=== PATIENT | male | born 1960 | race Caucasian/White ===

== ENCOUNTER → 2020-04-23 | Outpatient (CLI) | payer BC ==
--- NOTE | 2020-04-24 14:20 | MRI ---
EXAM DESCRIPTION: Lumbar Spine w/o Contrast : Magnetic Resonance Imaging. CLINICAL HISTORY: LUMBAGO WITH SCIATICA RIGHT SIDE COMPARISON: None. TECHNIQUE: Multiplanar, multiple standard sequences, non contrast MRI, lumbar spine. FINDINGS: L5-S1: The disc is well visualized on axial T2 series 501, image 3. Normal signal in the disc with disc space maintained. Trace posterior midline bulge and grade 1 retrolisthesis. Degenerative hypertrophy of the posterior flavum ligaments and facet joints (canal elements). Mild canal narrowing. Severe bilateral foraminal narrowing more on the right. Narrowing of the left L5 pars interarticularis. Focal marrow edema like signal in the base of the right L5 pedicle at the junction with the posterior lateral vertebral body. Circumscribed hyperintense T1 and T2 hemangioma also seen in the pedicle. L4-L5: Disc desiccation and a posterior broad-based bulge with disc space maintained. Posterior moderate degenerative hypertrophy of the canal elements is significant narrowing of the transverse diameter of the canal. Bilateral deformity of the L for pars interarticulares, more right than left AP canal diameter 8 mm. Trace anterolisthesis. Severe bilateral foraminal narrowing. Marrow edema-like Signal in the right L4 pedicle along with circumscribed hyperintense T1 and T2 hemangioma. L3-L4: Disc desiccation and minimal disc space loss. No bulging. Mild to moderate narrowing of the foramina. Hypertrophic degenerative changes in the canal elements. AP canal diameter 10 mm. L2-L3: Disc desiccation and disc space maintained. Anterior bulging and mild endplate reactive changes. Degenerative hypertrophy of the canal elements. AP canal diameter 12 mm. Bilateral mild foraminal narrowing. L1-L2: Normal signal in the disc with anterior bulging and endplate ridging. Canal elements are unremarkable. Canal and foramina are patent. T12-L1: Disc space preserved with normal signal in the disc. No bulging. Canal elements are unremarkable. Canal and foramina are patent. Conus terminates at this level. Broad dextroscoliosis. Paravertebral soft tissues negative. Minimal muscle atrophy.. Distal cord normal signal and caliber. Circumscribed hyperintense T1 and T2 hemangiomas at L5, L3, and T11 vertebral body. Otherwise normal marrow signal in the remaining vertebral bodies and the posterior elements. Vertebral bodies are not compressed at any level. IMPRESSION: 1. Multiple levels of disc desiccation and degenerative hypertrophy of the posterior flavum ligaments and facet joints. Also multiple levels of endplate changes, and abnormal marrow signal. 2. Focal marrow edema like signal, possibly stress injury and hemangioma in the right fifth pedicle. Severe bilateral foraminal narrowing, more on the right. Correlate for right L5 radiculopathy. 3. Multifactorial mild to moderate central canal stenosis L4-L5. Stress injury and hemangioma in the right L4 pedicle. 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 4. Borderline mild central canal stenosis L3-L4. Electronically signed by: Anish Morillo MD 04/24/2020 2:18 PM CDT
== END ==
LOC: MRI 11:06
PROVIDERS: ATTEND General Practice
DX: M51.36 Other intervertebral disc degeneration, lumbar region (principal); M46.96 Unspecified inflammatory spondylopathy, lumbar region; M48.061 Spinal stenosis, lumbar region without neurogenic claudication; M43.16 Spondylolisthesis, lumbar region; M24.28 Disorder of ligament, vertebrae; M95.9 Acquired deformity of musculoskeletal system, unspecified; R60.9 Edema, unspecified; D18.09 Hemangioma of other sites